=== PATIENT | male | born 1940 | race Caucasian/White ===

== ENCOUNTER 2017-10-20 09:02 | Day surgery (SDC) | payer MEDICARE ==
[2017-10-17 12:41] VITALS: BMI 30.2
[~2017-10-20 09:02] MED LIST: LACTATED RINGERS 1,000 ML IV SCH
[2017-10-20 09:31] VITALS: TEMP 97.1
[2017-10-20] MEDS ORDERED: PROPOFOL 10 MG/ML 20 ML VIAL IV ONE (10:03)
--- NOTE | 2017-10-20 10:24 | P.PCN ---
Date of Procedure: 10/20/17 Procedure(s) Performed: Procedure: Esophagogastroduodenoscopy and biopsy preoperative diagnosis: Epigastric pain and chronic reflux symptoms. Postoperative diagnosis: 1. Small sliding hiatal hernia with no obvious esophagitis or complicated reflux disease. 2. Mild antral gastritis. 3. Multiple biopsies obtained from the duodenum, antrum and esophagus. Preparation and sedation: Was provided by anesthesia. Brief clinical history: The patient is a 77-year-old male who was evaluated in the office last month for chronic reflux of 3-4 years duration and epigastric pain of more recent onset with feeding of burning sensation postprandially and easy fullness. This evaluation is to assess for complicated reflux disease or other pathology. Procedure: With the patient on his left lateral decubitus position and after informed consent and adequate sedation, I passed the Olympus-GIF 160 video upper endoscope through the cricopharyngeus down the esophagus. The esophagus appeared healthy with no obvious erosions, ulcers, strictures or Montano's esophagus. There was a small sliding hiatal hernia then the endoscope was advanced into the stomach which was insufflated with air and inspected in detail including the retroflex view in the cardia. There was some mottling and erythema in the antrum but no ulcers or erosions. Pyloric channel, duodenal bulb, post bulbar area and descending duodenum appeared within normal limits. Because of his symptoms, I obtained biopsies from the duodenum, antrum and esophagus then the endoscope was withdrawn. The patient tolerated the procedure well. Plan: The patient was reassured. Will await biopsy results and make further plans based on his course and biopsy results.
[2017-10-20 10:44] VITALS: RESP 18
[2017-10-20 11:11] VITALS: BP 144/79; PULSE 53
== END 2017-10-20 10:55 | disposition home or self-care (01) ==
LOC: ORWHC2ENDO 09:02
DX: K21.0 Gastro-esophageal reflux disease with esophagitis (principal); K31.9 Disease of stomach and duodenum, unspecified; K44.9 Diaphragmatic hernia without obstruction or gangrene; K29.70 Gastritis, unspecified, without bleeding; I10 Essential (primary) hypertension; E78.5 Hyperlipidemia, unspecified; M19.90 Unspecified osteoarthritis, unspecified site; N40.0 Benign prostatic hyperplasia without lower urinary tract symptoms; N28.1 Cyst of kidney, acquired; E07.9 Disorder of thyroid, unspecified; Z95.5 Presence of coronary angioplasty implant and graft; Z79.890 Hormone replacement therapy; Z79.82 Long term (current) use of aspirin; Z79.899 Other long term (current) drug therapy
CPT/HCPCS: 88305; 43239; J2704

== ENCOUNTER → 2018-06-22 | Outpatient (CLI) | payer MEDICARE ==
--- NOTE | 2018-06-22 13:30 | XR ---
EXAMINATION TYPE: XR chest 2V DATE OF EXAM: 06/22/2018 COMPARISON: NONE HISTORY: Shortness of breath TECHNIQUE: Frontal and lateral views of the chest are obtained. FINDINGS: There is no focal air space opacity, pleural effusion, or pneumothorax seen. The cardiac silhouette size is within normal limits. The osseous structures are intact. There are prominent guanaco g volume, increased retrosternal airspace. Coronary artery calcifications are present. There is event ration of right hemidiaphragm. The aorta is dense. Minimal strand-like densities at the lung bases li lukas reflect scarring. IMPRESSION: No acute cardiopulmonary process.
== END | disposition home or self-care (01) ==
LOC: RADXRYALE 09:56
PROVIDERS: ATTEND Internal Medicine Sleep Medicine
DX: R06.02 Shortness of breath (principal)
CPT/HCPCS: 71046

== ENCOUNTER 2018-10-21 20:17 | Emergency (ER) | payer MEDICARE ==
[2018-10-21 20:26] VITALS: BP 169/79; PULSE 68; RESP 18; TEMP 98.4
[2018-10-21] MEDS ORDERED: AMOXICILLIN 500 MG CAP PO STA (21:59)
--- NOTE | 2018-10-21 22:01 | ED ---
ENT HPI - General Source: patient Mode of arrival: ambulatory Limitations: no limitations <Hanane Rojas - Last Filed: 10/21/18 23:36> <Lavern Shirley - Last Filed: 10/22/18 05:31> - General Chief complaint: ENT Stated complaint: Ear pain Time Seen by Provider: 10/21/18 21:11 - History of Present Illness Initial comments: 78-year-old male presented for right ear pain. Patient states the past 2-3 days he has had congestion sinus pressure. He states they woke up this morning with left-sided ear pain. She states she is able to hear from the ear. Denies any rashes. Patient denies any fevers. Patient denies any headache. Remaining review of systems negative. Upon arrival patient appears well signs of acute distress. (Hanane Rojas) - Related Data Home Medications Medication Instructions Recorded Confirmed Aspirin 81 mg PO QAM 02/07/14 10/20/17 Atorvastatin [Lipitor] 40 mg PO HS 02/07/14 10/17/17 Finasteride [Proscar] 5 mg PO DAILY 02/07/14 10/17/17 Metoprolol Tartrate [Lopressor] 25 mg PO HS 02/07/14 10/17/17 Omeprazole [PriLOSEC] 20 mg PO QAM 02/07/14 10/17/17 Tamsulosin [Flomax] 0.4 mg PO DAILY 02/07/14 10/17/17 Levothyroxine Sodium [Synthroid] 88 mcg PO DAILY 02/11/14 10/17/17 Cholecalciferol [Vitamin D3] 1,000 unit PO DAILY 10/17/17 10/17/17 Lisinopril [Zestril] 5 mg PO DAILY 10/17/17 10/17/17 Previous Rx's Medication Instructions Recorded Amoxicillin 500 mg PO Q12HR 10 Days #20 cap 10/21/18 Allergies Allergy/AdvReac Type Severity Reaction Status Date / Time No Known Allergies Allergy Verified 10/20/17 09:24 Review of Systems ROS Other: All systems not noted in ROS Statement are negative. <Hanane Rojas - Last Filed: 10/21/18 23:36> ROS Other: All systems not noted in ROS Statement are negative. <Lavern Shirley - Last Filed: 10/22/18 05:31> ROS Statement: Those systems with pertinent positive or pertinent negative responses have been documented in the HPI. Past Medical History Past Medical History: GERD/Reflux, Hyperlipidemia, Hypertension, Osteoarthritis (OA), Prostate Disorder Additional Past Medical History / Comment(s): BPH, CYSTS ON KIDNEYS, CKD History of Any Multi-Drug Resistant Organisms: None Reported Past Surgical History: Back Surgery, Heart Catheterization With Stent Past Anesthesia/Blood Transfusion Reactions: Motion Sickness, Postoperative Nausea & Vomiting (PONV) Additional Past Anesthesia/Blood Transfusion Reaction / Comment(s): LIGHTHEADED AFTER HEART CATH. Date of Last Stent Placement:: 2011 ? Past Psychological History: No Psychological Hx Reported Smoking Status: Former smoker Past Alcohol Use History: Rare Past Drug Use History: None Reported - Past Family History Mother Family Medical History: No Reported History <Hanane Rojas - Last Filed: 10/21/18 23:36> General Exam Limitations: no limitations <Hanane Rojas Sergey - Last Filed: 10/21/18 23:36> - General Exam Comments Initial Comments: General: The patient is awake and alert, in no distress, and does not appear acutely ill. Eye: Pupils are equal, round and reactive to light, extra-ocular movements are intact. No nystagmus. There is normal conjunctiva bilaterally. No signs of icterus. Left tibia membrane is erythematous, small effusion noted. Tympanic numbering appears intact. No lesions of the EAC, no erythema of EAC. NO lesions of the external ear or scalp. No pain to palpation of mastoid. Hearing grossly intact. Ears, nose, mouth and throat: There are moist mucous membranes and no oral lesions. Neck: The neck is supple, there is no tenderness or JVD. Cardiovascular: There is a regular rate and rhythm. No murmur, rub or gallop is appreciated. Respiratory: Lungs are clear to auscultation, respirations are non-labored, breath sounds are equal. No wheezes, stridor, rales, or rhonchi. Musculoskeletal: Normal ROM, no tenderness. Strength 5/5. Sensation intact. Pulses equal bilaterally 2+. Neurological: A&O x 3. CN II-XII intact, There are no obvious motor or sensory deficits. Coordination appears grossly intact. Speech is normal. Skin: Skin is warm and dry and no rashes or lesions are noted. Psychiatric: Cooperative, appropriate mood & affect, normal judgment. (Hanane Rojas) Course Vital Signs 10/21/18 20:23 Temperature 98.4 F Pulse Rate 68 Respiratory 18 Rate Blood Pressure 169/79 O2 Sat by Pulse 98 Oximetry Medical Decision Making <Hanane Rojas - Last Filed: 10/21/18 23:36> <Lavern Shirley - Last Filed: 10/22/18 05:31> - Medical Decision Making 38-year-old male presenting for left ear pain. Patient has had upper respiratory symptoms. Tympanic membranes erythematous consistent with infection. No signs of vesicular lesions in the external auditory canal within the scalp or the external ear. Patient denies any pain of the eye he denies any pain of the face. Denies any hearing loss. No evidence of mastoiditis on examination. Patient appears well afebrile. Patient was evaluated and person by my attending provider Dr. Shirley. At this time feel patient is stable for discharge with outpatient she with amoxicillin and close primary care follow-up. Patient is agreeable care plan. Return parameters were discussed. Patient was discharged appearing well. (Hanane Rojas) % Evaluated the patient, I agree the patient has significant erythema of the left TM, there is no signs of perforation, no signs of hemotympanum. Patient to be treated for acute otitis media with outpatient follow-up with ENT. (Lavern Shirley) Disposition Is patient prescribed a controlled substance at d/c from ED?: No Time of Disposition: 23:40 <Hanane Rojas - Last Filed: 10/21/18 23:36> <Lavern Shirley - Last Filed: 10/22/18 05:31> Clinical Impression: Ear infection, Otitis media Disposition: HOME SELF-CARE Condition: Good Instructions (If sedation given, give patient instructions): Ear Infection (ED) Additional Instructions: Please use medication as discussed. Please follow-up with family doctor in the next 2 days of symptoms have not improved. Please return to emergency room if the symptoms increase or worsen or for any other concerns. Prescriptions: Amoxicillin 500 mg PO Q12HR 10 Days #20 cap Referrals: Manoj Carrero DO [Primary Care Provider] - 1-2 days
== END 2018-10-21 22:23 | disposition home or self-care (01) ==
LOC: EC 20:17
DX: H66.92 Otitis media, unspecified, left ear (principal); K21.9 Gastro-esophageal reflux disease without esophagitis; E78.5 Hyperlipidemia, unspecified; N40.0 Benign prostatic hyperplasia without lower urinary tract symptoms; I12.9 Hypertensive chronic kidney disease with stage 1 through stage 4 chronic kidney disease, or unspecified chronic kidney disease; N18.9 Chronic kidney disease, unspecified; Z87.891 Personal history of nicotine dependence; Z79.82 Long term (current) use of aspirin; Z79.890 Hormone replacement therapy; Z79.899 Other long term (current) drug therapy; Z95.5 Presence of coronary angioplasty implant and graft
CPT/HCPCS: 99282

== ENCOUNTER → 2019-01-18 | Outpatient (CLI) | payer MEDICARE ==
--- NOTE | 2019-01-18 13:57 | NM ---
EXAMINATION TYPE: NM bone/joint limited DATE OF EXAM: 01/18/2019 COMPARISON: NONE HISTORY: Pain TECHNIQUE: After the intravenous administration of 24.3 mCi Tc 99m MDP. Images acquired 3 hours pos t injection. Multiple views of knees and bilateral lower extremity are submitted. FINDINGS: There is abnormal uptake involving the knees suggestive of post arthritic changes. Abnormal uptake i nvolving the feet suggestive of post arthritic changes. IMPRESSION: 1. Findings involving the knees and feet are most typical of arthritic changes.
== END | disposition home or self-care (01) ==
LOC: RADNMMAIN 09:41
PROVIDERS: ATTEND Family Medicine
DX: M17.12 Unilateral primary osteoarthritis, left knee (principal)
CPT/HCPCS: 78300; A9503

== ENCOUNTER → 2019-06-04 | Day surgery (SDC) | payer MEDICARE ==
[2019-05-31 10:12] VITALS: BMI 30.4
[~2019-06-04] MED LIST changes: +LIDOCAINE 1% 20 ML VIAL (10MG/ML) FOR IV START INTRADERMA PRN; +PROPOFOL 10 MG/ML 20 ML VIAL IV ONE
[2019-06-04 09:07] VITALS: RESP 16; TEMP 98.1
--- NOTE | 2019-06-04 10:32 | P.PCN ---
Date of Procedure: 06/04/19 Description of Procedure: BRIEF HISTORY: Patient is a 79-year-old male presenting for outpatient colonoscopy for history of colon polyps. Patient previously had colonoscopy in 2014. Denies change in bowel habits, blood per rectum and abdominal pain. PROCEDURE PERFORMED: Colonoscopy with polypectomy . PREOPERATIVE DIAGNOSIS: History of colon polyps, last colonoscopy 2013. ESTIMATED BLOOD LOSS: Minimal. IV sedation per Anesthesia. PROCEDURE: After informed consent was obtained, the patient, was brought into the endoscopy unit. IV sedation was administered by Anesthesia under continuous monitoring. Digital rectal examination was normal. Initially the Olympus CF-190 flexible video colonoscope was then inserted in the rectum, gradually advanced into the cecum without any difficulty. Careful examination was performed as the scope was gradually being withdrawn. Ileocecal valve and the appendiceal orifice were visualized and appeared normal. Prep was excellent. Mucosa of the cecum, ascending colon, transverse colon, descending colon, sigmoid colon, and rectum appeared normal. 6 cm flat tubulovillous-appearing polyp removed with hot snare polypectomy. Flat 4 mm ascending colon polyp removed with cold snare polypectomy. Sessile 3 mm transverse colon polyp removed with cold snare polypectomy. Small diverticula noted throughout the colon. Retroflexion was performed in the rectum and no lesions were seen. The patient tolerated the procedure well. IMPRESSION: 1. 2 polyps removed from the ascending colon and transverse colon with cold snare polypectomy. 2. Flat cecal polyp removed with cold snare polypectomy. 3. Mild pandiverticulosis. RECOMMENDATIONS: Findings of this examination discussed with the patient and his . Okay to resume diet. Okay to resume medications. Await pathology from polypectomy. Discussion with the patient and would recommend repeat colonoscopy in 3 years for colon polyps, otherwise if the patient is not interested in pursuing any further colonoscopies would recommendation coming back only if signs or symptoms which warrant further evaluation develop.
[2019-06-04 10:54] VITALS: BP 140/81; PULSE 60
== END ==
LOC: ORWHC2ENDO 08:23
PROVIDERS: ATTEND Internal Medicine
DX: Z12.11 Encounter for screening for malignant neoplasm of colon (principal); D12.0 Benign neoplasm of cecum; K63.5 Polyp of colon; Z86.010 Personal history of colon polyps; I12.9 Hypertensive chronic kidney disease with stage 1 through stage 4 chronic kidney disease, or unspecified chronic kidney disease; N18.9 Chronic kidney disease, unspecified; Z95.5 Presence of coronary angioplasty implant and graft; E78.5 Hyperlipidemia, unspecified; I25.10 Atherosclerotic heart disease of native coronary artery without angina pectoris; I25.2 Old myocardial infarction; J45.909 Unspecified asthma, uncomplicated; E07.9 Disorder of thyroid, unspecified; M10.9 Gout, unspecified; N40.0 Benign prostatic hyperplasia without lower urinary tract symptoms; M19.90 Unspecified osteoarthritis, unspecified site; Z79.82 Long term (current) use of aspirin; Z79.890 Hormone replacement therapy; Z79.899 Other long term (current) drug therapy
CPT/HCPCS: 45385; J2704; 88305

== ENCOUNTER → 2020-05-05 | Outpatient (CLI) | payer MEDICARE ==
--- NOTE | 2020-05-05 14:42 | XR ---
Chest x-ray and left RIBS HISTORY: Trauma readings prior and pain Frontal view of the chest, 4 views of the left ribs submitted No evident displaced rib fracture. There is no pneumothorax or pleural effusion. No evident lung cont usion. There is eventration of right hemidiaphragm. Aorta is dense. Cardiac mediastinal silhouette wi thin normal limits. IMPRESSION: No acute abnormality. Bone scan could be performed for increased sensitivity as indicated if occult fracture is suspected clinically
== END | disposition home or self-care (01) ==
LOC: RADXRYALE 09:17
PROVIDERS: ATTEND Physician Assistant Medical
DX: R07.82 Intercostal pain (principal)

== ENCOUNTER → 2020-06-03 | Outpatient (CLI) | payer MEDICARE ==
--- NOTE | 2020-06-03 10:21 | XR ---
EXAMINATION TYPE: XR cervical spine comp DATE OF EXAM: 06/03/2020 COMPARISON: NONE HISTORY: Pain TECHNIQUE: Four views are submitted. FINDINGS: The odontoid is intact. There are no compression deformities. The prevertebral soft tissue structur es are within normal limits. There is posterior spondylosis C5 and C6 with multilevel degenerative d isc disease. Slight retrolisthesis of C3 relative to C4. Foraminal encroachment C4-5, C5-6 and C6-C7 bilaterally. Calcification soft tissue the neck likely vascular. IMPRESSION: 1. Hypertrophic and degenerative changes as discussed above.
== END | disposition home or self-care (01) ==
LOC: RADXRYALE 09:43
PROVIDERS: ATTEND Family Medicine
DX: M47.812 Spondylosis without myelopathy or radiculopathy, cervical region (principal); M89.38 Hypertrophy of bone, other site
CPT/HCPCS: 72050

== ENCOUNTER → 2020-09-10 | Outpatient (CLI) | payer MEDICARE ==
--- NOTE | 2020-09-10 09:46 | US ---
EXAMINATION TYPE: US kidneys/renal and bladder DATE OF EXAM: 09/10/2020 COMPARISON: Ultrasound 11/02/2019 CLINICAL HISTORY: N28.1 CYST OF KIDNEY,M54.5 LOW BACK PAIN. Pt states generalized ABD pain EXAM MEASUREMENTS: Right Kidney: 10.6 x 5.6 x 5.0 cm Left Kidney: 10.1 x 5.3 x 4.2 cm Right Kidney: No evidence of hydronephrosis, multiple cysts, largest cyst at upper pole measured= 4.9 x 5.0 x 4.3 cm similar in appearance to previous/ possible calculi at lower pole= 0.4 cm Left Kidney: No evidence of hydronephrosis, multiple cysts, largest cyst mid= 3.4 x 2.9 x 3.4 cm sarbjit lar in appearance to previous Bladder: wnl Bilateral Jets seen: Yes IMPRESSION: 1. Bilateral renal cystic structures. The largest at the upper pole of the right kidney measures 5 cm . 2. Probable right lower pole renal calculus measuring 4 mm. No hydronephrosis.
== END | disposition home or self-care (01) ==
LOC: RADUSWWP 07:32
PROVIDERS: ATTEND Family Medicine
DX: N28.1 Cyst of kidney, acquired (principal); M54.5 Low back pain
CPT/HCPCS: 76770

== ENCOUNTER → 2021-03-30 | Outpatient (CLI) | payer MEDICARE ==
--- NOTE | 2021-03-30 14:29 | US ---
EXAMINATION TYPE: US kidneys/renal and bladder DATE OF EXAM: 03/30/2021 COMPARISON: Renal ultrasound September 10, 2020 CLINICAL HISTORY: N18.3 Chronic kidney disease Stage III. EXAM MEASUREMENTS: Right Kidney: 12.6x6.4x7.2 cm Left Kidney: 10.9x5.8x5.7 cm Right Kidney: Multiple cysts throughout, largest = 4.8x5.8x4.8cm right inf echogenic foci 0.6cm Left Kidney: Multiple cysts largest =3.0x3.5x3.0cm Bladder: wnl Bilateral Jets seen: No There is no evidence for hydronephrosis at this point in time. Increased cortical echogenicity bilate rally with scattered thin-walled cysts of varying size and shape is redemonstrated. The urinary blad jose maria is satisfactorily distended. Bilateral ureteral jets are not seen. IMPRESSION: Evidence of chronic medical renal disease bilaterally. No hydronephrosis seen bilaterally .
== END | disposition home or self-care (01) ==
LOC: RADUSWWP 13:50
PROVIDERS: ATTEND Internal Medicine Nephrology
DX: N18.30 Chronic kidney disease, stage 3 unspecified (principal)
CPT/HCPCS: 76770

== ENCOUNTER → 2021-11-23 | Outpatient (CLI) | payer MEDICARE ==
--- NOTE | 2021-11-23 18:17 | US ---
EXAMINATION TYPE: US kidneys/renal and bladder DATE OF EXAM: 11/23/2021 COMPARISON: 03/30/2021 CLINICAL HISTORY: 81-year-old male N18.32 STAGE 3 CKD. TECHNIQUE: Multiple sonographic images of the kidneys and bladder are obtained. FINDINGS: EXAM MEASUREMENTS: Right Kidney: 10.2 x 4.9 x 5.3 cm Left Kidney: 9.9 x 5.5 x 4.5 cm Right Kidney: Cortical thinning. Multiple cysts, largest = 4.8 x 5.0 x 5.3cm. We note some perinephri c fat anteriorly. There is a dense echogenic focus lower pole = 0.9cm. Left Kidney: multiple cysts are present, largest = 3.6 x 2.7 x 3.4cm. There is dense echogenic focus upper pole = 0.8cm Bladder: wnl Bilateral Jets seen: no IMPRESSION: 1. There are changes of bilateral chronic medical renal disease. Multiple bilateral renal cysts measu ring up to 5.0 cm. 2. Echogenic foci, one in each lower pole, measuring up to 9 mm may represent nonobstructive calculi.
== END | disposition home or self-care (01) ==
LOC: RADUSWWP 14:24
PROVIDERS: ATTEND Internal Medicine
DX: N28.1 Cyst of kidney, acquired (principal); N18.32 Chronic kidney disease, stage 3b
CPT/HCPCS: 76770

== ENCOUNTER → 2022-02-15 | Outpatient (CLI) | payer MEDICARE ==
--- NOTE | 2022-02-15 16:17 | US ---
EXAMINATION TYPE: US carotid duplex BILAT DATE OF EXAM: 02/15/2022 COMPARISON: NONE CLINICAL HISTORY: R47.81 slurred speech. TECHNIQUE: Carotid duplex ultrasound examination. Indirect Doppler criteria was utilized. 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 Plaqu e visualized in the Left common carotid, bulb and ICA proximal. No significant stenosis visualized. Slightly elevated velocities on the right ICA compared to left. IMPRESSION: Mild to moderate atherosclerotic plaque without ultrasound evidence of hemodynamically significant st enosis bilaterally. Criteria for Assigning % of Stenosis / Diameter reduction (Estimation based on the indirect measurements of the internal carotid artery velocities (ICA PSV). 1. Normal (no stenosis)=ICA PSV < 125 cm/s: ratio < 2.0: ICA EDV<40 cm/s. 2. Less than 50% stenosis=ICA PSV < 125 cm/s: ratio < 2.0: ICA EDV<40 cm/s. 3. 50 to 69% stenosis=ICA PSV of 125 to 230 cm/s: ration 2.0 ? 4.0: ICA EDV 40-100 cm/s. 4. Greater than 70% stenosis to near occlusion= ICA PSV > 230 cm/s: ratio > 4.0: ICA EDV > 100 cm/s. 5. Near occlusion= ICA PSV velocities may be low or undetectable: variable ratio and ICA EDV. 6. Total occlusion=unable to detect flow.
--- NOTE | 2022-02-15 16:17 | CT ---
EXAMINATION TYPE: CT brain wo con CT DLP: 1036 mGycm, Automated exposure control for dose reduction was used. DATE OF EXAM: 02/15/2022 1:54 PM COMPARISON: None. CLINICAL INDICATION:Male, 81 years old with history of R47.81 slurred speech, TECHNIQUE: Brain: Multiple axial CT images of the brain were obtained without IV contrast. Coronal and sagittal reformats reviewed. FINDINGS: Brain: Extra-axial spaces: No abnormal extra-axial fluid collections. Ventricular system: Within normal limits Cerebral parenchyma: No acute intraparenchymal hemorrhage or mass effect. The gao-white junction is well differentiated. Confluent regions of low-attenuation within the periventricular and subcortical white matter. Cerebral volume loss. Cerebellum: Unremarkable. Mass effect: No evidence of midline shift. Intracranial vasculature: Atherosclerotic calcifications of the intracranial vessels. Soft tissues: Normal. Calvarium/osseous structures: No depressed skull fracture. Paranasal sinuses and mastoid air cells: Right mastoid effusion. Visualized orbits: Bilateral aphakia IMPRESSION: 1. No acute intracranial process. 2. Nonspecific white matter changes, likely secondary to chronic small vessel ischemic disease. 3. Right mastoid effusion.
== END | disposition home or self-care (01) ==
LOC: RADUSWWP 13:05
PROVIDERS: ATTEND Family Medicine
DX: I65.23 Occlusion and stenosis of bilateral carotid arteries (principal); H74.8X1 Other specified disorders of right middle ear and mastoid
CPT/HCPCS: 70450; 93880

== ENCOUNTER → 2022-03-25 | Outpatient (CLI) | payer MEDICARE ==
--- NOTE | 2022-03-25 14:43 | XR ---
EXAMINATION TYPE: XR shoulder complete BILAT DATE OF EXAM: 03/25/2022 COMPARISON: NONE HISTORY: Pain TECHNIQUE: Three views are submitted of each shoulder. FINDINGS: The osseous structures are intact. There is no acute fracture or dislocation. The AC joint arthropa thy. Chronic rib deformities incidentally noted. Spurring is noted along the inferior margin of the j oint space on the right. IMPRESSION: 1. Bilateral AC joint arthropathy correlate for chronic rotator cuff disease.
== END | disposition home or self-care (01) ==
LOC: RADXRYALE 14:19
PROVIDERS: ATTEND Physician Assistant
DX: M19.011 Primary osteoarthritis, right shoulder (principal); M19.012 Primary osteoarthritis, left shoulder

== ENCOUNTER → 2022-08-26 | Outpatient (CLI) | payer MEDICARE ==
--- NOTE | 2022-08-28 13:22 | MR ---
EXAMINATION TYPE: MR foot LT wo con DATE OF EXAM: 08/26/2022 9:21 PM CLINICAL INDICATION:Male, 82 years old with history of L03.032 M86.9; Cellulitis of the great toe. COMPARISON: None TECHNIQUE: Multiplanar, multisequence MR imaging of the left forefoot was performed administration o f IV gadolinium contrast. MR contrast: IV Contrast: None FINDINGS: There is high inversion recovery streaky signal seen throughout the foot. This is most pronounced madi und the first digit. There is some high inversion recovery signal fluid around the tendon of the flexor hallucis longus be st appreciated on series 601 image 14. A small joint effusion within thee interphalangeal joint of the first digit. Low T1 signal seen within the bone marrow of the first digit distal interphalangeal joint adjacent to the articular surface series 301 image 16 with somewhat abrupt transition zone. There is associated high inversion recovery signal within this distal phalanx of the first digit. There is abnormal low T1 bone marrow signal within the medial first digit sesamoid bone series 1001 i mage 4e with associated high T2 signal. This is a bipartite medial sesamoid bone. No evidence of fracture. No organizing fluid collection. IMPRESSION: 1. Edematous changes throughout the foot centered around the first digit compatible with provided hi story of cellulitis. No evidence of organizing fluid collection. 2. Tenosynovitis of the flexor hallucis longus tendon 3. Small joint effusion within the first digit interphalangeal joint as well as some reactive bony e penny within the distal pharynx of the first digit with relatively preserved bone marrow signal on T1- weighted imaging. There is a small area adjacent to the joint which could be degenerative versus asher y osteomyelitis. 4. Abnormal bone marrow signal is within medial first digit sesamoid bone suspicious for osteolytic myelitis
== END | disposition home or self-care (01) ==
LOC: RADMRIMAIN 21:45
PROVIDERS: ATTEND Podiatrist Foot & Ankle Surgery
DX: L03.032 Cellulitis of left toe (principal); M86.9 Osteomyelitis, unspecified; M25.475 Effusion, left foot

== ENCOUNTER 2022-09-29 13:33 | Emergency (ER) | payer MEDICARE ==
[2022-09-29 13:40] VITALS: BP 119/72; PULSE 69; RESP 16; TEMP 97.8
--- NOTE | 2022-09-29 14:08 | ED ---
Upper Extremity HPI - General Source: patient, RN notes reviewed Mode of arrival: ambulatory Limitations: no limitations - History of Present Illness MD Complaint: Injury to:: right, arm, wrist <Nani Larson - Last Filed: 09/29/22 14:08> <Margarita Barger - Last Filed: 09/29/22 21:32> - General Chief Complaint: Extremity Injury, Upper Stated Complaint: rt arm injury Time Seen by Provider: 09/29/22 14:05 - History of Present Illness Initial Comments: This is an 82-year-old male who presents to the emergency department for right arm and right wrist pain. States that he tripped and fell earlier today. He has some difficulty moving the right arm as a result of the pain. Denies hitting his head or sustaining any loss of consciousness. (Nani Larson) 82-year-old male presents the emergency department chief complaint of fall. Patient states that she tripped on the stairs earlier today and now has pain in his right elbow and wrist. Reports pain with movement of the right wrist. He states that he did not lose consciousness or hit his head. He is on aspirin but no other blood thinners. Denies any other injury. (Margarita Barger) - Related Data Home Medications Medication Instructions Recorded Confirmed Aspirin 81 mg PO QAM 02/07/14 05/31/19 Atorvastatin [Lipitor] 40 mg PO HS 02/07/14 05/31/19 Finasteride [Proscar] 5 mg PO DAILY 02/07/14 06/04/19 Metoprolol Tartrate [Lopressor] 12.5 mg PO QAM 02/07/14 06/04/19 Tamsulosin [Flomax] 0.4 mg PO DAILY 02/07/14 06/04/19 Cholecalciferol [Vitamin D3] 2,000 unit PO DAILY 10/17/17 06/04/19 Cyclobenzaprine [Flexeril] 5 mg PO HS 05/31/19 05/31/19 Famotidine [Pepcid] 20 mg PO HS 05/31/19 05/31/19 Levothyroxine Sodium [Synthroid] 112 mcg PO DAILY 05/31/19 06/04/19 Montelukast [Singulair] 10 mg PO HS 02/20/20 02/20/20 allopurinoL [Zyloprim] 100 mg PO HS 05/31/19 05/31/19 Allergies Allergy/AdvReac Type Severity Reaction Status Date / Time ibuprofen [From Motrin] Allergy Vomiting Verified 09/29/22 13:41 Review of Systems ROS Other: All systems not noted in ROS Statement are negative. <Nani Larson - Last Filed: 09/29/22 14:08> ROS Other: All systems not noted in ROS Statement are negative. <Margarita Barger - Last Filed: 09/29/22 21:32> ROS Statement: Those systems with pertinent positive or pertinent negative responses have been documented in the HPI. Past Medical History Past Medical History: Cancer, GERD/Reflux, Hyperlipidemia, Osteoarthritis (OA), Prostate Disorder, Skin Disorder Additional Past Medical History / Comment(s): BPH, CYSTS ON KIDNEYS, cysts on liver, spots of dry skin, hx skin cancer on nose History of Any Multi-Drug Resistant Organisms: None Reported Past Surgical History: Back Surgery, Heart Catheterization With Stent, Tonsillectomy Additional Past Surgical History / Comment(s): skin cancer removed from nose, buffy cataracts, one cardiac stent Past Anesthesia/Blood Transfusion Reactions: Motion Sickness, Postoperative Nausea & Vomiting (PONV) Additional Past Anesthesia/Blood Transfusion Reaction / Comment(s): vomited during heart cath., took longer to come out after colonoscopy Date of Last Stent Placement:: 2011 Past Psychological History: No Psychological Hx Reported Past Alcohol Use History: None Reported Past Drug Use History: None Reported - Past Family History Mother Family Medical History: No Reported History <Nani Larson - Last Filed: 09/29/22 14:08> General Exam Limitations: no limitations <Nani Larson - Last Filed: 09/29/22 14:08> General appearance: alert, in no apparent distress Head exam: Present: atraumatic, normocephalic, normal inspection Eye exam: Present: normal appearance, PERRL, EOMI. Absent: scleral icterus, conjunctival injection, periorbital swelling ENT exam: Present: normal exam, mucous membranes moist Neck exam: Present: normal inspection. Absent: tenderness, meningismus, lymphadenopathy Respiratory exam: Present: normal lung sounds bilaterally. Absent: respiratory distress, wheezes, rales, rhonchi, stridor Cardiovascular Exam: Present: regular rate, normal rhythm, normal heart sounds. Absent: systolic murmur, diastolic murmur, rubs, gallop, clicks GI/Abdominal exam: Present: soft, normal bowel sounds. Absent: distended, tenderness, guarding, rebound, rigid Extremities exam: Present: tenderness (tenderness in the distal wrist, decreased range of motion at the wrist, capillary refill less than 2 seconds, radial pulses 2+), normal capillary refill. Absent: pedal edema, joint swelling, calf tenderness Back exam: Present: normal inspection Neurological exam: Present: alert, oriented X3, CN II-XII intact Psychiatric exam: Present: normal affect, normal mood Skin exam: Present: warm, dry, normal color, abrasion (Right elbow). Absent: rash <Margarita Barger - Last Filed: 09/29/22 21:32> - General Exam Comments Initial Comments: Visual Physical Exam Vital signs reviewed General: Well-appearing, nontoxic, no acute distress. Head: Normocephalic, atraumatic Eyes: PERRLA, EOMI ENT: Airway patent Chest: Nonlabored breathing Skin: No visual rash, normal skin tone Neuro: Alert and oriented 3 Musculoskeletal: No gross abnormalities (Vogley,Nani) Course Vital Signs 09/29/22 13:37 Temperature 97.8 F Pulse Rate 69 Respiratory 16 Rate Blood Pressure 119/72 O2 Sat by Pulse 95 Oximetry Medical Decision Making <Margarita Barger - Last Filed: 09/29/22 21:32> - Medical Decision Making Was pt. sent in by a medical professional or institution (, PA, DAIRY SUPPLIES SALES REPRESENTATIVE, urgent care, hospital, or fdc...) When possible be specific @ -No Did you speak to anyone other than the patient for history (EMS, parent, family, police, friend...)? What history was obtained from this source @ -No Did you review nursing and triage notes (agree or disagree)? Why? @ -I reviewed and agree with nursing and triage notes Were old charts reviewed (outside hosp., previous admission, EMS record, old EKG, old radiological studies, urgent care reports/EKG's, fdc records)? Report findings @ -No old charts were reviewed Differential Diagnosis (chest pain, altered mental status, abdominal pain women, abdominal pain men, vaginal bleeding, weakness, fever, dyspnea, syncope, headache, dizziness, GI bleed, back pain, seizure, CVA, palpatations, mental health, musculoskeletal)? @ -Differential Musculoskeletal Muscular strain, contusion, ligament sprain, fracture, arthritis, septic arthritis, bursitis, cellulitis, muscle spasm, nerve compression, DVT, arterial occlusion, herpes zoster, electrolyte abnormality, tumor.... This is not meant to be in all inclusive list EKG interpreted by me (3pts min.). @ -None X-rays interpreted by me (1pt min.). @ -X-rays of right elbow show no acute fracture, x-ray of the right wrist showed a subtle deformity along the dorsum of the wrist involving the triquetrum, metallic foreign body CT interpreted by me (1pt min.). @ -None done U/S interpreted by me (1pt. min.). @ -None done What testing was considered but not performed or refused? (CT, X-rays, U/S, labs)? Why? @ -None What meds were considered but not given or refused? Why? @ -None Did you discuss the management of the patient with other professionals (professionals i.e. , PA, DAIRY SUPPLIES SALES REPRESENTATIVE, lab, RT, psych nurse, social services, mortgage servicing specialist, teacher, chief media officer, correctional counselor/case manager)? Give summary @ -No Was smoking cessation discussed for >3mins.? @ -No Was critical care preformed (if so, how long)? @ -No Were there social determinants of health that impacted care today? How? (Homelessness, low income, unemployed, alcoholism, drug addiction, trans portation, low edu. Level, literacy, decrease access to med. care, [facility], rehab)? @ -No Was there de-escalation of care discussed even if they declined (Discuss DNR or withdrawal of care, Hospice)? DNR status @ -No What co-morbidities impacted this encounter? (DM, HTN, Smoking, COPD, CAD, Cancer, CVA, ARF, Chemo, Hep., AIDS, mental health diagnosis, sleep apnea, morbid obesity)? @ -None Was patient admitted / discharged? Hospital course, mention meds given and route, prescriptions, significant lab abnormalities, going to OR and other pertinent info. @ -Discharged. Patient presented to emergency department following a fall in which he did not lose consciousness or hit his head. Patient has a subtle deformity on the dorsum of the wrist on his x-ray. Patient neurovascular status intact. Patient was splinted in a volar splint and given follow-up with orthop edics. Patient was advised follow-up with orthopedics within the next 1-2 days and take Tylenol and Motrin as needed for pain. Patient discharged in stable condition. Case discussed with my attending, Dr. Stratton Undiagnosed new problem with uncertain prognosis? @ -No Drug Therapy requiring intensive monitoring for toxicity (Heparin, Nitro, Insulin, Cardizem)? @ -No Were any procedures done? @ -Splinting Diagnosis/symptom? @ -triquetrum fracture Acute, or Chronic, or Acute on Chronic? @ -acute Uncomplicated (without systemic symptoms) or Complicated (systemic symptoms)? @ -uncomplicated Side effects of treatment? @ -No Exacerbation, Progression, or Severe Exacerbation? @ -No Poses a threat to life or bodily function? How? (Chest pain, [place], [place], pneumonia, PE, COPD, DKA, ARF, appy, cholecystitis, CVA, Diverticulitis, Homicidal, Suicidal, threat to staff... and all critical care pts) @ -No (Margarita Barger) Disposition <aNni Larson - Last Filed: 09/29/22 14:08> Is patient prescribed a controlled substance at d/c from ED?: No Time of Disposition: 17:28 <Margarita Barger - Last Filed: 09/29/22 21:32> Clinical Impression: Fracture of triquetrum Disposition: HOME SELF-CARE Condition: Stable Instructions (If sedation given, give patient instructions): Wrist Injury (ED) Additional Instructions: Please follow up with orthopedics. Return to the emergency department for new or worsening symptoms. Referrals: Manoj Carrero DO [Primary Care Provider] - 1-2 days Natan Neely DO [Doctor of Osteopathic Medicine] - 1-2 days
--- NOTE | 2022-09-29 14:14 | XR ---
EXAMINATION TYPE: XR elbow complete RT DATE OF EXAM: 09/29/2022 COMPARISON: NONE HISTORY: Pain FINDINGS: Three views of the elbow demonstrate no pathologic joint effusion. The osseous structures are intact . There is no acute fracture or dislocation. Spur involving the olecranon and radial head. There is a soft tissue injury posterior to the proximal ulna. Correlate for laceration. IMPRESSION: 1. No acute fracture or dislocation. If symptoms persist follow-up study in 7 to 10 days could be ob tained.
--- NOTE | 2022-09-29 14:16 | XR ---
EXAMINATION TYPE: XR wrist complete RT DATE OF EXAM: 09/29/2022 COMPARISON: NONE HISTORY: Pain TECHNIQUE: Four views submitted. FINDINGS: Joint space is preserved. On the lateral view there is a subtle deformity of the triquetrum. Metallic density overlying the distal radius. Diffuse osteopenia. There is a slight negative ulnar variance IMPRESSION: 1. On the lateral view there is a subtle deformity along the dorsum of the wrist involving the trique trum. Minimally displaced fracture in the differential diagnosis correlate with point tenderness. 2. Metallic density overlying the distal radius could represent a soft tissue foreign body correlate clinically.
[2022-09-29] MEDS ORDERED: DIPH,PERTUS(ACELL)TETVAC-LF 0.5 ML VIAL IM ONE (17:40)
== END 2022-09-29 17:53 | disposition home or self-care (01) ==
LOC: EC 13:33
DX: S62.111A Displaced fracture of triquetrum [cuneiform] bone, right wrist, initial encounter for closed fracture (principal); K21.9 Gastro-esophageal reflux disease without esophagitis; E78.5 Hyperlipidemia, unspecified; M19.90 Unspecified osteoarthritis, unspecified site; Z88.6 Allergy status to analgesic agent; Z79.82 Long term (current) use of aspirin; Z79.899 Other long term (current) drug therapy; Z23 Encounter for immunization; W01.0XXA Fall on same level from slipping, tripping and stumbling without subsequent striking against object, initial encounter
CPT/HCPCS: 29125; 90471; 90715; 99283

== ENCOUNTER → 2023-04-19 | Outpatient (CLI) | payer MEDICARE ==
--- NOTE | 2023-04-19 15:19 | US ---
EXAMINATION TYPE: US kidneys/renal and bladder DATE OF EXAM: 04/19/2023 COMPARISON: 11/23/2021 CLINICAL INDICATION: Male, 82 years old with history of N18.32 CHRONIC KIDNEY DISEASE, STAGE 3B; Caren ent denies any signs or symptoms EXAM MEASUREMENTS: Right Kidney: 12.2 x 6.5 x 5.7 cm Left Kidney: 12.1 x 7.1 x 5.6 cm Post Void Residual Volume: NA mL Right Kidney: Multiple cysts, largest = 6.0 x 5.7 x 6.3 cm Left Kidney: Multiple cysts, largest = 3.1 x 3.4 x 3.9 cm Bladder: WNL Bilateral Jets seen: No; Left not seen within a 5 minute period Normal Post Void Residual: NA IMPRESSION: 1. Bilateral renal cysts.
== END | disposition home or self-care (01) ==
LOC: RADUSWWP 14:19
PROVIDERS: ATTEND Internal Medicine
DX: N18.32 Chronic kidney disease, stage 3b (principal); N28.1 Cyst of kidney, acquired
CPT/HCPCS: 76770

== ENCOUNTER 2023-06-12 11:36 | Emergency (ER) | payer MEDICARE ==
--- NOTE | 2023-06-12 11:50 | ED ---
General Adult HPI - General Source: patient, RN notes reviewed Mode of arrival: ambulatory Limitations: no limitations <Manoj Mcwilliams - Last Filed: 06/12/23 11:48> - General Source: patient, family, RN notes reviewed Mode of arrival: ambulatory Limitations: no limitations <Abdirizak Rasmussen - Last Filed: 06/12/23 15:58> - General Stated complaint: Neck pain, back pain Time Seen by Provider: 06/12/23 11:38 - History of Present Illness Initial comments: 83-year-old male presents emergency department complaint of neck pain. Patient states has been going for 1 week states it radiates down his back. He was seen and was given steroid pack, baclofen. Patient states has not helped he states any movement makes pain worse he denies any fevers chills no chest pain or shortness of breath no trauma. (Manoj Mcwilliams) Patient is a pleasant 83-year-old male presenting to the emergency department with concerns for right-sided neck pain. Onset of symptoms was 4 to 5 days ago. Discomfort is right side of the neck and does radiate down some. No chest pain. No dyspnea. Discomfort is positional. Patient states it hurts more to turn his head to the left and a little bit to the right. Pain is not as bad when remaining still. No trauma. No history of chronic neck problems no weakness of the arms. No paresthesia. (Abdirizak Rasmussen) - Related Data Home Medications Medication Instructions Recorded Confirmed Aspirin 81 mg PO QAM 02/07/14 05/31/19 Atorvastatin [Lipitor] 40 mg PO HS 02/07/14 05/31/19 Finasteride [Proscar] 5 mg PO DAILY 02/07/14 06/04/19 Metoprolol Tartrate [Lopressor] 12.5 mg PO QAM 02/07/14 06/04/19 Tamsulosin [Flomax] 0.4 mg PO DAILY 02/07/14 06/04/19 Cholecalciferol [Vitamin D3] 2,000 unit PO DAILY 10/17/17 06/04/19 Cyclobenzaprine [Flexeril] 5 mg PO HS 05/31/19 05/31/19 Famotidine [Pepcid] 20 mg PO HS 05/31/19 05/31/19 Levothyroxine Sodium [Synthroid] 112 mcg PO DAILY 05/31/19 06/04/19 Montelukast [Singulair] 10 mg PO HS 05/31/19 05/31/19 allopurinoL [Zyloprim] 100 mg PO HS 05/31/19 05/31/19 Allergies Allergy/AdvReac Type Severity Reaction Status Date / Time ibuprofen [From Motrin] Allergy Vomiting Verified 09/29/22 13:41 Review of Systems ROS Other: All systems not noted in ROS Statement are negative. <Manoj Mcwilliams - Last Filed: 06/12/23 11:48> ROS Other: All systems not noted in ROS Statement are negative. Constitutional: Denies: fever Eyes: Denies: eye pain ENT: Denies: ear pain Respiratory: Denies: cough, dyspnea Cardiovascular: Denies: chest pain Gastrointestinal: Denies: abdominal pain Musculoskeletal: Reports: as per HPI <Abdirizak Rasmussen - Last Filed: 06/12/23 15:58> ROS Statement: Those systems with pertinent positive or pertinent negative responses have been documented in the HPI. Past Medical History Past Medical History: Cancer, GERD/Reflux, Hyperlipidemia, Osteoarthritis (OA), Prostate Disorder, Skin Disorder Additional Past Medical History / Comment(s): BPH, CYSTS ON KIDNEYS, cysts on liver, spots of dry skin, hx skin cancer on nose History of Any Multi-Drug Resistant Organisms: None Reported Past Surgical History: Back Surgery, Heart Catheterization With Stent, Tonsillectomy Additional Past Surgical History / Comment(s): skin cancer removed from nose, buffy cataracts, one cardiac stent Past Anesthesia/Blood Transfusion Reactions: Motion Sickness, Postoperative Nausea & Vomiting (PONV) Additional Past Anesthesia/Blood Transfusion Reaction / Comment(s): vomited during heart cath., took longer to come out after colonoscopy Date of Last Stent Placement:: 2011 Past Psychological History: No Psychological Hx Reported Past Alcohol Use History: None Reported Past Drug Use History: None Reported - Past Family History Mother Family Medical History: No Reported History <Manoj Mcwilliams - Last Filed: 06/12/23 11:48> General Exam <Manoj Mcwilliams - Last Filed: 06/12/23 11:48> Limitations: no limitations General appearance: alert, in no apparent distress Head exam: Present: normocephalic Eye exam: Present: normal appearance Neck exam: Present: other (Right lower paraspinal fullness and tenderness, mild) Respiratory exam: Present: normal lung sounds bilaterally Cardiovascular Exam: Present: regular rate, normal rhythm Expanded Peripheral pulses: 2+: Radial (R), Radial (L) GI/Abdominal exam: Present: soft. Absent: tenderness, pulsatile mass Extremities exam: Present: normal inspection, full ROM. Absent: tenderness Back exam: Present: tenderness (Right trapezius with mild tenderness and fullness). Absent: vertebral tenderness Neurological exam: Present: alert, CN II-XII intact. Absent: motor sensory deficit Expanded Neurological exam: Present: protecting the airway Speech: Present: fluid speech Sensory exam: Upper Extremity Light Touch: Normal Motor strength exam: RUE: 5, LUE: 5 Psychiatric exam: Present: normal affect, normal mood Skin exam: Present: normal color <Abdirizak Rasmussen - Last Filed: 06/12/23 15:58> - General Exam Comments Initial Comments: Visual Physical Exam Vital signs reviewed General: Well-appearing, nontoxic, no acute distress. Head: Normocephalic, atraumatic Eyes: PERRLA, EOMI ENT: Airway patent Chest: Nonlabored breathing Skin: No visual rash, normal skin tone Neuro: Alert and oriented 3 Musculoskeletal: No gross abnormalities (Manoj Mcwilliams) Course Vital Signs 06/12/23 06/12/23 12:04 14:53 Temperature 98.0 F Pulse Rate 97 95 Respiratory 18 16 Rate Blood Pressure 198/89 177/96 O2 Sat by Pulse 99 96 Oximetry Medical Decision Making <Manoj Mcwilliams - Last Filed: 06/12/23 11:48> <Abdirizak Rasmussen - Last Filed: 06/12/23 15:58> - Medical Decision Making I completed the quick note portion of this chart signed Manoj Mcwilliams PA-C (Manoj Mcwilliams) Was pt. sent in by a medical professional or institution (MATT Lenz, OCCUPATIONAL SAFETY AND HEALTH MANAGER, urgent care, hospital, or retirement...) When possible be specific @ -No Did you speak to anyone other than the patient for history (EMS, parent, family, police, friend...)? What history was obtained from this source @ -No Did you review nursing and triage notes (agree or disagree)? Why? @ -I reviewed and agree with nursing and triage notes Were old charts reviewed (outside hosp., previous admission, EMS record, old EKG, old radiological studies, urgent care reports/EKG's, retirement records)? Report findings @ -No old charts were reviewed Differential Diagnosis (chest pain, altered mental status, abdominal pain women, abdominal pain men, vaginal bleeding, weakness, fever, dyspnea, syncope, headache, dizziness, GI bleed, back pain, seizure, CVA, palpatations, mental health, musculoskeletal)? @ -Differential Musculoskeletal Muscular strain, contusion, ligament sprain, fracture, arthritis, septic arthritis, bursitis, cellulitis, muscle spasm, nerve compression, DVT, arterial occlusion, herpes zoster, electrolyte abnormality, tumor.... This is not meant to be in all inclusive list EKG interpreted by me (3pts min.). @ -As above X-rays interpreted by me (1pt min.). @ -Cervical spine x-ray shows mild degenerative change CT interpreted by me (1pt min.). @ -None done U/S interpreted by me (1pt. min.). @ -None done What testing was considered but not performed or refused? (CT, X-rays, U/S, labs)? Why? @ -None What meds were considered but not given or refused? Why? @ -None Did you discuss the management of the patient with other professionals (professionals i.e. , PA, OCCUPATIONAL SAFETY AND HEALTH MANAGER, lab, RT, psych nurse, nursing home social worker, optometry doctor, teacher, president and chief commercial officer, registered nurse hh case manager)? Give summary @ -No Was smoking cessation discussed for >3mins.? @ -No Was critical care preformed (if so, how long)? @ -No Were there social determinants of health that impacted care today? How? (Homelessness, low income, unemployed, alcoholism, drug addiction, transp ortation, low edu. Level, literacy, decrease access to med. care, half-way, rehab)? @ -No Was there de-escalation of care discussed even if they declined (Discuss DNR or withdrawal of care, Hospice)? DNR status @ -No What co-morbidities impacted this encounter? (DM, HTN, Smoking, COPD, CAD, Cancer, CVA, ARF, Chemo, Hep., AIDS, mental health diagnosis, sleep apnea, morbid obesity)? @ -None Was patient admitted / discharged? Hospital course, mention meds given and route, prescriptions, significant lab abnormalities, going to OR and other pertinent info. @ -Patient presents with symptoms consistent with cervical strain and muscle spasm. No acute changes with x-ray. The patient is updated on results. Patient received medication for discomfort. Patient would like to be discharged at this time. Patient is offered a period of time to reevaluate after medications however he would prefer to be discharged. Patient and family are both updated on results and need for follow-up. Undiagnosed new problem with uncertain prognosis? @ -No Drug Therapy requiring intensive monitoring for toxicity (Heparin, Nitro, Insulin, Cardizem)? @ -No Were any procedures done? @ -No Diagnosis/symptom? @ -Cervical strain Acute, or Chronic, or Acute on Chronic? @ -Acute Uncomplicated (without systemic symptoms) or Complicated (systemic symptoms)? @ -Default Side effects of treatment? @ -No Exacerbation, Progression, or Severe Exacerbation? @ -No Poses a threat to life or bodily function? How? (Chest pain, [place], [place], pneumonia, PE, COPD, DKA, ARF, appy, cholecystitis, CVA, Diverticulitis, Homicidal, Suicidal, threat to staff... and all critical care pts) @ -No (Abdirizak Rasmussen) Disposition <Manoj Mcwilliams - Last Filed: 06/12/23 11:48> Is patient prescribed a controlled substance at d/c from ED?: No Time of Disposition: 15:58 <Abdirizak Rasmussen - Last Filed: 06/12/23 15:58> Clinical Impression: Strain of neck muscle Disposition: HOME SELF-CARE Condition: Stable Instructions (If sedation given, give patient instructions): Cervical Strain (ED) Additional Instructions: Continue prescriptions as prescribed by your doctor. Please do follow-up with primary care physician in the beginning of this week. Return for increased pain, other areas of discomfort, difficulty breathing, weakness, worsening symptoms or any other concerns Referrals: Manoj Carrero DO [Primary Care Provider] - 1-2 days
[2023-06-12 12:39] VITALS: TEMP 98
--- NOTE | 2023-06-12 12:51 | XR ---
EXAMINATION TYPE: XR cervical spine comp DATE OF EXAM: 06/12/2023 12:39 PM CLINICAL INDICATION:Male, 83 years old with history of pain; [facility] COMPARISON: 06/03/2020 TECHNIQUE: The cervical spine was imaged in frontal, lateral, odontoid and bilateral oblique. FINDINGS: The osseous structures show normal alignment without evidence of an acute fracture. There are osteoph ytes noted throughout the cervical spine on the anterior and lateral aspects of the vertebral bodies. The intervertebral disk spaces are narrowed at multiple levels. Pedicles are intact. Soft tissues a re within normal limits. The odontoid appears intact. Atherosclerosis of the aortic arch. IMPRESSION: 1. No fracture or dislocation. 2. Mild to moderate degenerative disc disease changes of the cervical spine.
[2023-06-12] MEDS ORDERED: HYDROmorphone 1 MG/ML 1 ML SYRINGE IM STA (14:59)
[2023-06-12 15:20] VITALS: RESP 16
[2023-06-12] MEDS: HYDROmorphone 0.5 MG/0.5 ML SYRINGE IVP STA (15:49)
[2023-06-12] MEDS: KETOROLAC 15 MG/ML 1 ML VIAL IM STA (15:53)
[2023-06-12] MEDS ORDERED: ACET/COD 300 MG/30 MG STARTER PACK 6 TAB BTL PO STA (15:58)
[2023-06-12 16:22] VITALS: BP 176/83; PULSE 92
== END 2023-06-12 16:07 | disposition home or self-care (01) ==
LOC: EC 11:36
DX: S16.1XXA Strain of muscle, fascia and tendon at neck level, initial encounter (principal); M47.812 Spondylosis without myelopathy or radiculopathy, cervical region; E78.5 Hyperlipidemia, unspecified; K21.9 Gastro-esophageal reflux disease without esophagitis; M19.90 Unspecified osteoarthritis, unspecified site; N40.0 Benign prostatic hyperplasia without lower urinary tract symptoms; Z79.899 Other long term (current) drug therapy; Z88.6 Allergy status to analgesic agent; X58.XXXA Exposure to other specified factors, initial encounter
CPT/HCPCS: 72050; 99283; 96374; 96372; J1885; J1170

== ENCOUNTER → 2023-06-23 | Outpatient (CLI) | payer MEDICARE ==
--- NOTE | 2023-06-25 13:47 | MR ---
EXAMINATION TYPE: MR cervical spine wo con DATE OF EXAM: 06/23/2023 11:29 AM CLINICAL INDICATION:Male, 83 years old with history of M50.30 CERVICAL DISC DEGENERATION; PHH, Neck pain into buffy upper extremities COMPARISON: 06/12/2023.. TECHNIQUE: Multi planar, multi sequence imaging was performed utilizing: T1-weighted, T2-weighted, an d turbo inversion recovery imaging of the cervical spine. IV Contrast: cc (none if empty) FINDINGS: Alignment: The cervical vertebral bodies have preserved heights. Alignment is within normal limits gi may patient positioning. Bones: Multilevel disc space narrowing and osteophyte formation with facet and uncovertebral joint ar thropathy. Cord: The spinal cord is unremarkable with regards to their signal intensity and morphology. Discs: Intervertebral disc signal is maintained. C2-C3: No significant disc pathology. The spinal canal is patent. No neural foraminal stenosis. C3-C4: A disc osteophyte complex is present which minimally narrows the ventral subarachnoid space. Bilateral facet and uncovertebral joint arthropathy are present with mild bilateral neural foraminal stenosis. C4-C5: A disc osteophyte complex is present which minimally narrows the ventral subarachnoid space. Bilateral facet and uncovertebral joint arthropathy are present with moderate to severe right and mi ld to moderate left neural foraminal stenosis. C5-C6: A disc osteophyte complex is present which minimally narrows the ventral subarachnoid space. Bilateral facet and uncovertebral joint arthropathy are present with moderate bilateral neural sara inal stenosis. C6-C7: No significant disc pathology. The spinal canal is patent. Bilateral facet and uncovertebral joint arthropathy are present with mild bilateral neural foraminal stenosis. C7-T1: No significant disc pathology. The spinal canal is patent. No neural foraminal stenosis. Other: None. IMPRESSION: 1. No evidence for disc herniation or significant spinal canal stenosis. 2. Mild to moderate disc degeneration with associated osteoarthritic changes. 3. Neural foraminal stenosis worse at C4-C5 with moderate left and moderate to severe right and C5-C6 with moderate bilateral neural foraminal stenosis. 4. No evidence for significant spinal canal stenosis.
== END | disposition home or self-care (01) ==
LOC: RADMRIMAIN 10:52
PROVIDERS: ATTEND Family Medicine
DX: M99.71 Connective tissue and disc stenosis of intervertebral foramina of cervical region (principal); M50.30 Other cervical disc degeneration, unspecified cervical region; M54.12 Radiculopathy, cervical region
CPT/HCPCS: 72141

== ENCOUNTER → 2023-08-03 | Outpatient (CLI) | payer MEDICARE ==
--- NOTE | 2023-08-03 20:44 | MR ---
EXAMINATION TYPE: MR lumbar spine wo con DATE OF EXAM: 08/03/2023 COMPARISON: None HISTORY: 83-year-old male M48.062 Lower back pain, radiates down back of left thigh. TECHNIQUE: Multiplanar, multisequence images of the lumbar spine were acquired without IV contrast. FINDINGS: Vertebral body heights are preserved. Mild heterogeneous marrow signal suggesting some patchy red mar row hyperplasia. No suspicious bone marrow placement. Conus medullaris is normal. [id number] multilevel degenerative disc disease with desiccated and mildly narrowed discs. Ligamentum flavum thickening especially upper and mid lumbar spine. Moderate multilevel facet arthrop athy is present. Degenerative grade 1 anterolisthesis. Remaining alignment is maintained. At the L3-L4 level, there is hypertrophic facet arthropathy with ligamentum flavum thickening, mild d isc bulge, degenerative grade 1 anterolisthesis. Changes result in focal moderate to severe spinal ca nal stenosis along with mild right neural foraminal stenosis. Some minimal posterior disc bulging is present at additional levels without significant spinal canal stenosis. On the right, there is additional variable mild neuroforaminal narrowing. Previous right S1 laminoto my defect. There may have been previous right L5-S1 foraminotomy as well with low positioning of the exiting right L5 nerve root, sagittal image 15. On the left, variable mild neuroforaminal stenoses, particularly at L4-L5 and L5-S1. However, at L5-S 1, and intraforaminal and left lateral disc osteophyte complex appears to prominently abut the exitin g left L5 nerve root. Incidental renal cysts measuring up to 6.7 cm on the right. Degenerative change at the SI joints. IMPRESSION: 1. Mild to moderate multilevel degenerative disc disease. Hypertrophic facet arthropathy and ligament um flavum thickening greatest at L3-L4 where there is a degenerative grade 1 anterolisthesis. 2. At L3-L4, changers result in a moderate to severe focal spinal canal stenosis with mild right neur oforaminal stenosis. 3. There appears to be previous right S1 laminotomy defect and possible previous right L5-S1 foramino jacinta causing low positioning of the exiting right L5 nerve root. 4. On the left at L5-S1, there is an intraforaminal and left lateral disc osteophyte complex which ap pears to prominently abut/impinge the exiting left L5 nerve root.
== END | disposition home or self-care (01) ==
LOC: RADMRIMAIN 07:44
PROVIDERS: ATTEND Physical Medicine & Rehabilitation
DX: M51.36 Other intervertebral disc degeneration, lumbar region (principal); M47.26 Other spondylosis with radiculopathy, lumbar region; M43.16 Spondylolisthesis, lumbar region; M99.73 Connective tissue and disc stenosis of intervertebral foramina of lumbar region; M25.78 Osteophyte, vertebrae
CPT/HCPCS: 72148

== ENCOUNTER → 2023-10-28 | Outpatient (CLI) | payer MEDICARE ==
--- NOTE | 2023-10-28 12:33 | US ---
EXAMINATION TYPE: US kidneys/renal and bladder DATE OF EXAM: 10/28/2023 COMPARISON: 04/19/2023 CLINICAL INDICATION: Male, 83 years old with history of N18.32 CHRONIC KIDNEY DISEASE, STAGE 3B; CKD EXAM MEASUREMENTS: Right Kidney: 9.90 x 4.92 x 4.16 cm Left Kidney: 11.23 x 5.56 x 4.67 cm Right Kidney: multiple cystic areas noted, largest = 6.0 x 5.4 x 6.2 cm cortical medullary differen tiation is maintained. Left Kidney: multiple cystic areas noted, largest = 3.2 x 3.0 x 3.5 cm cortical medullary differe ntiation is maintained. Bladder: wnl Bilateral Jets seen: no There is no evidence for hydronephrosis at this point in time. No nephrolithiasis is seen. No jaret s are identified. The urinary bladder is anechoic. Bilateral ureteral jets are seen. IMPRESSION: 1. Bilateral simple appearing renal cysts. 2. No evidence for obstructive uropathy.
== END | disposition home or self-care (01) ==
LOC: RADUSWWP 10:43
PROVIDERS: ATTEND Internal Medicine
DX: N18.32 Chronic kidney disease, stage 3b (principal); N28.1 Cyst of kidney, acquired
CPT/HCPCS: 76770